=== PATIENT | female | born 1975 | race Caucasian/White ===

== ENCOUNTER 2018-02-05 06:04 | Day surgery (SDC) | payer OTHER ==
[~2018-02-05] VITALS: Ht 152.4 cm; Wt 75.6 kg
[~2018-02-05 06:04] MED LIST: ALBU90OI INH; CYCL10 PO; DULO60 PO; NAPR550 PO; Naprosyn375 MG PO; Norco 10-325 T1 EACH PO; OMEP10ER PO; OXYACE5T PO; TRAM50 PO
[2018-02-05] MEDS ORDERED: DULO60 (06:38)
[2018-02-05] MEDS ORDERED: ELIQUIS5 MG PO (06:39)
[2018-02-05] MEDS ORDERED: GABA800 PO (06:39)
[2018-02-05] MEDS ORDERED: CYCL10 PO (06:39)
[2018-02-05] MEDS ORDERED: ASPI81CH PO (06:40)
[2018-02-05] MEDS ORDERED: NIFE30ER PO (06:40)
== END 2018-02-05 09:30 | disposition home or self-care (01) ==
LOC: ORSCSDS 06:04
PROVIDERS: Obstetrics & Gynecology
PROC: 0U5B8ZZ Destruction of Endometrium, Via Natural or Artificial Opening Endoscopic (ICD-10-PCS; principal; 2018-02-05 07:30)
DX: N93.8 Other specified abnormal uterine and vaginal bleeding (principal); D50.0 Iron deficiency anemia secondary to blood loss (chronic); I10 Essential (primary) hypertension; F17.210 Nicotine dependence, cigarettes, uncomplicated; Z79.82 Long term (current) use of aspirin; Z79.899 Other long term (current) drug therapy
CPT/HCPCS: 88305; J1100; J1580; J1885; J2250; J2405; J3010; J7120

== ENCOUNTER → 2018-11-28 | Outpatient (CLI) | payer OTHER ==
[~2018-11-28] MED LIST changes: +ASPI81CH PO; +DULO60; +ELIQUIS5 MG PO; +GABA800 PO; +NIFE30ER PO
== END ==
LOC: LAB 11:45 → LAB SHORT 11:45
DX: N89.8 Other specified noninflammatory disorders of vagina (principal)
CPT/HCPCS: 87070; 87205